=== PATIENT | male | born 1995 | race Caucasian/White ===

== ENCOUNTER 2019-06-28 02:19 | Emergency (ER) | payer SELFPAY ==
[2019-06-28] MEDS ORDERED: METRONIDAZOLE 500 MG TABLET PO ONE (05:24)
[2019-06-28] MEDS ORDERED: PENICILLIN V POTASSIUM 500 MG TABLET PO ONE (05:24)
[2019-06-28] MEDS ORDERED: OXYCODONE-ACETAMINOPHEN 5-325 MG TABLET PO ONE (05:24)
--- NOTE | 2019-06-28 05:30 | ER Document Report ---
ED Oral Problem - General Chief Complaint: Toothache Stated Complaint: TOOTHACHE Time Seen by Provider: 06/28/19 05:18 - HPI Notes: 24-year-old male presents complaining of right lower dental pain x1 day. Patient has an appointment to have a tooth extracted on 07/03/2019. Patient states over the past 24 hours he has noticed a lot of pain in the region of tooth #30 and is had associated facial swelling on the right side of his face. Patient denies fever, chills, trismus, shortness of breath. - Related Data Allergies/Adverse Reactions: No Known Allergies Allergy (Unverified 06/28/19 02:49) Home Medications: Metformin Past Medical History - General Information source: Patient - Social History Smoking Status: Never Smoker Frequency of alcohol use: None Drug Abuse: None Family History: Reviewed & Not Pertinent Patient has suicidal ideation: No Patient has homicidal ideation: No Review of Systems - Review of Systems Constitutional: No symptoms reported EENT: See HPI Cardiovascular: No symptoms reported Respiratory: No symptoms reported Gastrointestinal: No symptoms reported Genitourinary: No symptoms reported Male Genitourinary: No symptoms reported Musculoskeletal: No symptoms reported Skin: No symptoms reported Hematologic/Lymphatic: No symptoms reported Neurological/Psychological: No symptoms reported -: Yes All other systems reviewed and negative Physical Exam - Vital signs Vitals: Temp Pulse Resp BP Pulse Ox 98.1 F 87 20 143/79 H 96 06/28/19 02:32 06/28/19 02:32 06/28/19 02:32 06/28/19 02:32 06/28/19 02:32 - Notes Notes: PHYSICAL EXAMINATION: GENERAL: Well-appearing, well-nourished and in no acute distress. HEAD: Atraumatic, normocephalic. EYES: Pupils equal round and reactive to light, extraocular movements intact, sclera anicteric, conjunctiva are normal. ENT exam: Patient has a cavity present on the lateral base of tooth #30. There is no associated abscess seen. Patient has some right cheek swelling but there is no trismus and no submandibular swelling present. PSYCH: Normal mood, normal affect. SKIN: Warm, Dry, normal turgor, no rashes or lesions noted. Course - Re-evaluation Re-evalutation: 06/28/19 05:29 Emergency signs and symptoms, reasons to return to the emergency department discussed with the patient. - Vital Signs Vital signs: Temp Pulse Resp BP Pulse Ox 98.1 F 87 20 143/79 H 96 06/28/19 02:32 06/28/19 02:32 06/28/19 02:32 06/28/19 02:32 06/28/19 02:32 Discharge - Discharge Clinical Impression: Pain, dental Condition: Good Disposition: HOME, SELF-CARE Instructions: Oral Narcotic Medication ([facility]), Toothache ([facility]), Penicillin V K ([facility]) Additional Instructions: Return to the Emergency Department without delay if any worse. Follow-up with your dentist as scheduled on 07/03/2019. HOME CARE INSTRUCTIONS & INFORMATION: Thank you for choosing us for your medical needs. We hope you're satisfied with the care you received. After you leave, you must properly care for your problem and, at the same time, observe its progress. Any condition can change. Some illnesses can change rapidly over hours or days. If your condition worsens, return to the Emergency Department or see your physician promptly. ABOUT YOUR X-RAYS AND EKG'S: If you had an EKG or X-rays taken, they have been read by the Emergency Physician. The X-rays and EKG's will also be read by a Radiologist or Provider Service Representative within 24 hours. If discrepancies are noted, you will be notified by telephone. Please be certain the ED has a correct telephone number & address where you can be reached. Also, realize that some fractures or abnormalities do not show up on initial X-rays. If your symptoms continue, see your physician. ABOUT YOUR LABORATORY TEST: If you had laboratory tests, the results have been reviewed by the Emergency Physician. Some test results (for example cultures) may not be available for several days. You will be contacted if any test result shows you need additional treatment. Please be certain the ED has a correct telephone number and address where you can be reached. ABOUT YOUR MEDICATIONS: You will receive instructions on how to take your medicine on the prescription label you receive. Additional information may be provided by the Pharmacy. If you have questions afterwards, call the ED for clarification or further instructions. Some prescribed medications may cause drowsiness. Do not perform tasks such as driving a car or operating machinery without consulting your Pharmacist. If you feel you need a refill of pain medication, your condition will need re-evaluation. Please do not call for a refill of any medication. ABOUT YOUR SIGNATURE: Signature of this document acknowledges to followin. Understanding that you received emergency treatment and that you may be released before al medical problems are known or treated. Please be certain the ED has a correct phone number & address where you can be reached. 2. Acknowledgement that you will arrange for follow-up care as recommended. 3. Authorization for the Emergency Physician to provide information to your follow-up Physician in order to maximize your care. AT ANY TIME, IF YOUR SYMPTOMS CHANGE SIGNIFICANTLY OR WORSEN OR YOU DEVELOP NEW SYMPTOMS, RETURN TO THE EMERGENCY DEPARTMENT IMMEDIATELY FOR RE-EVALUATION. OUR GOAL IS TO PROVIDE EXCELLENT MEDICAL CARE! WE HOPE THAT WE HAVE MET YOUR EXPECTATIONS DURING YOUR EMERGENCY DEPARTMENT VISIT AND THAT YOU FEEL YOU HAVE RECEIVED EXCELLENT CARE! Prescriptions: Metronidazole [Flagyl 500 mg Tablet] 500 mg PO TID #30 tablet Penicillin V Potassium [Penicillin Vk 500 mg Tablet] 500 mg PO QID #40 tablet Oxycodone HCl/Acetaminophen [Percocet 5-325 mg Tablet] 1 tab PO Q6H PRN #20 tab PRN Reason: Severe Pain
[2019-06-28 06:11] VITALS: BP 147/73
== END 2019-06-28 05:55 | disposition home or self-care (01) ==
LOC: ER 02:19
DX: K02.9 Dental caries, unspecified (principal); R22.0 Localized swelling, mass and lump, head; K08.89 Other specified disorders of teeth and supporting structures; Z79.84 Long term (current) use of oral hypoglycemic drugs
CPT/HCPCS: 99282

== ENCOUNTER 2019-09-14 01:35 | Emergency (ER) | payer MEDICAID ==
[2019-09-14] MEDS ORDERED: DIAZEPAM 5 MG TABLET PO ONE (02:13)
[2019-09-14] MEDS ORDERED: OXYCODONE-ACETAMINOPHEN 5-325 MG TABLET PO ONE (02:13)
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
[2019-09-14] MEDS: KETOROLAC TROMETHAMINE 60 MG/2 ML SDV IM ONE ×2 (02:29→03:00)
--- NOTE | 2019-09-14 02:59 | RADIOLOGY REPORT (SQ) ---
EXAM DESCRIPTION: XR LUMBAR SPINE 3 VIEWS COMPLETED DATE/TME: 09/14/2019 00:00 CLINICAL HISTORY: 24 years Male, fall bone pain COMPARISON: None. Findings: Normal alignment. Mild levo convexity. Mild T11 anterior vertebral compression deformity. Extraspinal structures are grossly intact. IMPRESSION: Mild T11 anterior vertebral compression deformity.
[2019-09-14] MEDS ORDERED: DEXAMETHASONE 4 MG TABLET PO ONE (03:07)
--- NOTE | 2019-09-14 04:23 | RADIOLOGY REPORT (SQ) ---
EXAM DESCRIPTION: CT THORACIC SPINE WITHOUT IV CONTRAST COMPLETED DATE/TME: 09/14/2019 03:06 CLINICAL HISTORY: 24 years, Male, evaluate t11 fracture - image T9-12 pls COMPARISON: None. TECHNIQUE: Axial CT images of the thoracic spine were obtained without contrast. Sagittal and coronal reformats were performed. DL [id number] Images stored on PACS. All CT scanners at this facility use dose modulation, iterative reconstruction, and/or weight based dosing when appropriate to reduce radiation dose to as low as reasonably achievable (ALARA). [facility]: Dose Right [facility]: CareDose [facility]: Dose Right [facility]: Teradose 4D [facility]: [employer] LIMITATIONS: None. FINDINGS: The alignment of the thoracic spine is satisfactory. There is mild chronic anterior wedging of the T11 vertebral body. There is no cortical disruption, retropulsion or paraspinal hematoma. The paraspinal soft tissues are normal. The remainder of the vertebral heights are maintained. There is no significant spinal canal stenosis or neural foraminal narrowing at any level. Visualized portions of the lungs are clear. IMPRESSION: Mild chronic anterior wedging of the T11 vertebral body. No acute fracture or subluxation. TECHNICAL DOCUMENTATION: Quality ID # 436: Final reports with documentation of one or more dose reduction techniques (e.g., Automated exposure control, adjustment of the mA and/or kV according to patient size, use of iterative reconstruction technique) copyright 2011 [email or web address]- All Rights Reserved
[2019-09-14] MEDS ORDERED: HYDROCODONE/ACETAMINOPHEN 5-325 MG (6 TAB/ER DISP) PO PRN (05:16)
[2019-09-14 05:36] VITALS: BP 134/49
== END 2019-09-14 05:36 | disposition home or self-care (01) ==
LOC: ER 01:35
DX: S39.92XA Unspecified injury of lower back, initial encounter (principal); M54.41 Lumbago with sciatica, right side; W19.XXXA Unspecified fall, initial encounter; Y93.B9 Activity, other involving muscle strengthening exercises; Z88.2 Allergy status to sulfonamides
CPT/HCPCS: 99284; 96372; 72100; 72128; J3490 ×2; J1885; J8540

== ENCOUNTER 2019-09-17 04:25 | Emergency (ER) | payer MEDICAID ==
[2019-09-17] MEDS ORDERED: KETOROLAC TROMETHAMINE INJ/PF 30 MG/1 ML SDV ONE (05:56)
[2019-09-17] MEDS ORDERED: OXYCODONE-ACETAMINOPHEN 5-325 MG TABLET ONE (05:56)
--- NOTE | 2019-09-17 06:09 | ER Document Report ---
ED General - General Stated Complaint: back pain Time Seen by Provider: 09/17/19 06:08 Primary Care Provider: BRANDEE NUR III, MD [NO LOCAL MD] - Follow up as needed Notes: 24-year-old male with back pain. Right upper lumbar/lower thoracic radiating down the posterior right leg to the foot with mild tingling. No foot drop no weakness no bowel or bladder incontinence no injection drug use. Injured himself about a week ago jumping up off of a box at [employer]. Had a compression type injury at that time and was here had a CT cervical and thoracic spine set to have a T11 chronic wedge deformity. He actually saw a spine doctor who said "you are pretty messed up" and ordered an MRI within a week but did not give him any pain medication. He has a history of a traumatic right arm amputation but does not take narcotics and [facility] [place] He is try to get a primary care doctor to the best of his ability and is unable to do so. TRAVEL OUTSIDE OF THE [place] IN LAST 30 DAYS: No - Related Data Allergies/Adverse Reactions: Sulfa (Sulfonamide Antibiotics) Allergy (Verified 09/14/19 01:55) Past Medical History - Social History Smoking Status: Never Smoker Family History: Reviewed & Not Pertinent Review of Systems - Review of Systems Notes: REVIEW OF SYSTEMS GEN: Denies fever, chills, weight loss ENT: Denies sore throat, nasal discharge, ear pain EYES: Denies blurry vision, eye pain, discharge CV: Denies chest pain, palpitations, edema RESP: Denies cough, shortness of breath, wheezing GI: Denies abdominal pain, nausea, vomiting, diarrhea MSK: Back pain SKIN: Denies rash, skin lesions LYMPH: Denies swollen glands/lymph nodes NEURO: Paresthesia right foot no other neurologic deficits PSYCH: Denies depression, suicidal or homicidal ideation PHYSICAL EXAMINATION General: No acute distress, well-nourished Head: Atraumatic, normocephalic ENT: Mouth normal, oropharynx moist, no exudates or tonsillar enlargement Eyes: Conjunctiva normal, pupils equal, lids normal Neck: No JVD, supple, no guarding CVS: Normal rate, regular rhythm, no murmurs Resp: No resp distress, equal and normal breath sounds bilaterally GI: Nondistended, soft, no tenderness to palpation, no rebound or guarding Ext: Right upper arm amputation, nonedematous lower extremities Back: Mild right midline/paramedian upper lumbar tenderness Skin: No rash, warm Lymphatic: No lymphadeopathy noted Neuro: Awake, alert. Face symmetric. GCS 15. 5 plantar dorsiflexion right leg Physical Exam - Vital signs Vitals: Temp Pulse Resp BP Pulse Ox 97.5 F 73 15 134/75 H 99 09/17/19 08:00 09/17/19 08:00 09/17/19 08:00 09/17/19 08:00 09/17/19 08:00 Course - Re-evaluation Re-evalutation: 09/17/19 09:09 Reviewed imaging from past visit Back injury with right-sided lumbar radiculopathy without signs of cauda equina with minimal tenderness. Previous imaging was of the thoracic spine which showed a chronic T11 wedge I think this is probably not the cause of his pain We did do a CT L-spine todayno fractures. I can actually see some disc bulging at L4-L5/L5-S1 on the CT scan and the patient already has an MRI scheduled. We discussed management including lidocaine short course of narcotic, and a steroid taper A given the names of several primary care and spine doctors because he is unsatisfied with his current orthopedic care. He has insurance and will follow- up as an outpatient. I have discussed with the patient there likely diagnosis, aftercare plan, follow-up plans and my usual and customary return precautions. They verbalized understanding of this. - Vital Signs Vital signs: Temp Pulse Resp BP Pulse Ox 97.5 F 73 15 134/75 H 99 09/17/19 08:00 09/17/19 08:00 09/17/19 08:00 09/17/19 08:00 09/17/19 08:00 - Diagnostic Test Radiology reviewed: Image reviewed, Reports reviewed Discharge - Discharge Clinical Impression: Lumbar radiculopathy Thoracic compression fracture Qualifiers: Encounter type: subsequent encounter Thoracic vertebra fracture level: T11 Fracture healing: with routine healing Qualified Code(s): S22.080D - Wedge compression fracture of T11-T12 vertebra, subsequent encounter for fracture with routine healing Condition: Good Disposition: HOME, SELF-CARE Instructions: Low Back Pain ([facility]), Oral Narcotic Medication ([facility]), Radiculopathy ([facility]) Additional Instructions: Brandee Nur [facility] Prescriptions: Oxycodone HCl/Acetaminophen [Percocet 10-325 Mg Tablet] 1 each PO Q4HP PRN #17 tablet PRN Reason: Prednisone [Deltasone 20 mg Tablet] 40 mg PO DAILY #20 tablet Lidocaine [Lidoderm 5% (700 mg) Transdermal Patch] 1 patch TP DAILY #10 adh..patch Referrals: BRANDEE NUR III, MD [NO LOCAL MD] - Follow up as needed
--- NOTE | 2019-09-17 06:54 | RADIOLOGY REPORT (SQ) ---
EXAM DESCRIPTION: CT LUMBAR SPINE WITHOUT IV CONTRAST COMPLETED DATE/TME: 09/17/2019 00:00 CLINICAL HISTORY: 24 years, Male, RECENT FALL WITH T 11 DEFORMITY. NOW C/O RADICULOPATHY R LEG COMPARISON: Plain films 09/14/2019 TECHNIQUE: [id number] Images stored on PACS. All CT scanners at this facility use dose modulation, iterative reconstruction, and/or weight based dosing when appropriate to reduce radiation dose to as low as reasonably achievable (ALARA). [facility]: Dose Right [facility]: CareDose [facility]: Dose Right [facility]: Teradose 4D [facility]: [employer] LIMITATIONS: None. FINDINGS: 5 lumbar type vertebral bodies, for the purposes of this exam. Mild levoconvex scoliosis. Transitional L5 segment with pseudoarticulation of the right L5 transverse process and the sacrum. Similar to the prior plain film there is mild anterior wedge deformity of T11. No retropulsed fracture fragment. Evaluation of spinal canal contents limited due to CT technique. However, vertebral body height and alignment is otherwise preserved. Extraspinal anatomic structures are unremarkable. Pars defects at the L5-S1 level without spondylolisthesis. No CT evidence for central canal stenosis at any level.. IMPRESSION: Stable mild anterior T11 wedge deformity. No retropulsed fracture fragment. Mild levoconvex scoliosis. Transitional L5 segment as above. Pars defects at L5-S1 without spondylolisthesis. TECHNICAL DOCUMENTATION: Quality ID # 436: Final reports with documentation of one or more dose reduction techniques (e.g., Automated exposure control, adjustment of the mA and/or kV according to patient size, use of iterative reconstruction technique) copyright 2011 [employer]- All Rights Reserved
[2019-09-17 08:01] VITALS: BP 134/75
== END 2019-09-17 08:01 | disposition home or self-care (01) ==
LOC: ER 04:25
DX: S22.080D Wedge compression fracture of T11-T12 vertebra, subsequent encounter for fracture with routine healing (principal); M54.16 Radiculopathy, lumbar region; R20.0 Anesthesia of skin; M54.9 Dorsalgia, unspecified; X58.XXXD Exposure to other specified factors, subsequent encounter; Y93.39 Activity, other involving climbing, rappelling and jumping off; Y92.89 Other specified places as the place of occurrence of the external cause; Z88.2 Allergy status to sulfonamides; Z89.201 Acquired absence of right upper limb, unspecified level
CPT/HCPCS: 72131

== ENCOUNTER 2019-10-19 11:51 | Emergency (ER) | payer MEDICAID ==
--- NOTE | 2019-10-19 12:14 | ER Document Report ---
ED Medical Screen (RME) - General Chief Complaint: Back Pain Stated Complaint: BACK PAIN Time Seen by Provider: 10/19/19 12:04 Mode of Arrival: Ambulatory Information source: Patient TRAVEL OUTSIDE OF THE [place] IN LAST 30 DAYS: No - HPI Onset: Other Notes: 10/19/19 12:13 This 24-year-old male who allegedly fractured T11 approximately a month ago has some radiculopathy he had stayed home on bedrest for 2 weeks was doing much better last night went to the gym for the first time since the fracture 1 month ago did a light workout with some yoga today has excruciating pain mid back radiation down lower extremities with some bladder incontinence - Related Data Allergies/Adverse Reactions: Sulfa (Sulfonamide Antibiotics) Allergy (Verified 09/14/19 01:55) Physical Exam - Vital signs Vitals: Temp Pulse Resp BP Pulse Ox 98.0 F 93 20 119/72 95 10/19/19 11:59 10/19/19 11:59 10/19/19 11:59 10/19/19 11:59 10/19/19 11:59 Course - Vital Signs Vital signs: Temp Pulse Resp BP Pulse Ox 98.0 F 93 20 119/72 95 10/19/19 11:59 10/19/19 11:59 10/19/19 11:59 10/19/19 11:59 10/19/19 11:59
[2019-10-19] MEDS ORDERED: ONDANSETRON HCL INJ/PF 4 MG/2 ML SDV IV ONE (13:04)
[2019-10-19] MEDS ORDERED: NORMAL SALINE 1000 ML 1,000 ML IV ONE (13:04)
[2019-10-19] MEDS ORDERED: HYDROMORPHONE HCL INJ/PF 2 MG/ML AMPULE IV ONE (13:04)
[2019-10-19] MEDS ORDERED: HYDROMORPHONE HCL INJ/PF 2 MG/ML AMPULE IM ONE (13:42)
[2019-10-19] MEDS ORDERED: ONDANSETRON HCL INJ/PF 4 MG/2 ML SDV IM ONE (13:42)
[2019-10-19 13:56] LABS: APPEARANCE,URINE CLEAR; BILIRUBIN,URINE NEGATIVE (NEGATIVE); COLOR,URINE YELLOW; GLUCOSE, URINE NEGATIVE (NEGATIVE); KETONES,URINE NEGATIVE (NEGATIVE); LEUKOCYTE ESTERASE,URINE NEGATIVE (NEGATIVE); NITRITE,URINE NEGATIVE (NEGATIVE); PROTEIN,URINE NEGATIVE (NEGATIVE); URINE SPECIFIC GRAVITY 1.013; UROBILINOGEN,URINE NEGATIVE mg/dL (<2.0)
[2019-10-19 14:59] LABS: ABSOLUTE BASOPHILS # (AUTO) 0.1 10^3/uL (0.0-0.2); ABSOLUTE EOSINOPHILS # (AUTO) 0.1 10^3/uL (0.0-0.6); ABSOLUTE LYMPHOCYTES (AUTO) 2.3 10^3/uL (0.5-4.7); ABSOLUTE MONOCYTES (AUTO) 0.7 10^3/uL (0.1-1.4); BASOPHILS % (AUTO) 0.9 % (0-2); EOSINOPHILS % (AUTO) 1.2 % (0-6); HEMATOCRIT 45.6 % (37.9-51.0); HEMOGLOBIN 15.9 g/dL (13.5-17.0); LYMPHOCYTES % (AUTO) 25.1 % (13-45); MEAN CORPUSCULAR HGB CONC 34.7 g/dL (32.0-36.0); MEAN CORPUSCULAR VOLUME 78 fl (80-97); MONOCYTES % (AUTO) 7.5 % (3-13); PLATELET COUNT 190 10^3/uL (150-450); RED BLOOD COUNT 5.86 10^6/uL (4.35-5.55); RED CELL DISTRIBUTION WIDTH 13.5 % (11.5-14.0); SEGMENTED NEUTROPHILS % (AUTO) 65.3 % (42-78); TOTAL CELLS COUNTED % (AUTO) 100 %; WHITE BLOOD COUNT 9.1 10^3/uL (4.0-10.5)
--- NOTE | 2019-10-19 15:18 | RADIOLOGY REPORT (SQ) ---
EXAM DESCRIPTION: CT LUMBAR SPINE WITHOUT COMPLETED DATE/TIME: 10/19/2019 3:02 pm REASON FOR STUDY: low back pain COMPARISON: None. TECHNIQUE: Axial images acquired through the lumbar spine without intravenous contrast. Images revi ewed with lung, soft tissue and bone windows. Reconstructed coronal and sagittal MPR images reviewed . All images stored on PACS. All CT scanners at this facility use dose modulation, iterative reconstruction, and/or weight based d osing when appropriate to reduce radiation dose to as low as reasonably achievable (ALARA). [facility]: Dose Right [facility]: CareDose [facility]: Dose Right [facility]: Teradose 4D [facility]: [employer] RADIATION DOSE: mGy. LIMITATIONS: None. FINDINGS: SEGMENTATION: Partial L5 transitional anatomy. ALIGNMENT: Normal. VERTEBRAL BODIES: No fractures. No dislocation. No acute findings. DISCS: Probable 4-5 mm central disc protrusion at the L4-5 level. Study limited by lack of intrathec al contrast. PEDICLES, TRANSVERSE PROCESSES: No fractures. No dislocation. No acute findings. FACETS, POSTERIOR ELEMENTS: No fractures. No dislocation. No spinal stenosis. HARDWARE: None in the spine. VISUALIZED RIBS: No fractures. SOFT TISSUES: No significant or acute finding in adjacent soft tissues. OTHER: No other significant finding. IMPRESSION: Probable 4-5 mm central disc protrusion at the L4-5 level. No fracture. TECHNICAL DOCUMENTATION: JOB ID: [id number] [place]-72 Quality ID # [id number]: Final reports with documentation of one or more dose reduction techniques (e.g., Au tomated exposure control, adjustment of the mA and/or kV according to patient size, use of iterative reconstruction technique) 2010 [employer]- All Rights Reserved Reading location - IP/workstation name: [employer]
[2019-10-19 15:22] LABS: ALBUMIN 4.1 g/dL (3.5-5.0); ALKALINE PHOSPHATASE 78 U/L (38-126); ANION GAP 10 (5-19); ASPARTATE AMINO TRANSFERASE 54 U/L (17-59); BILIRUBIN,DIRECT 0.2 mg/dL (0.0-0.4); BILIRUBIN,TOTAL 0.6 mg/dL (0.2-1.3); BLOOD UREA NITROGEN 12 mg/dL (7-20); CARBON DIOXIDE 24 mmol/L (22-30); CHLORIDE 103 mmol/L (98-107); GLUCOSE 146 mg/dL (75-110); POTASSIUM 4.4 mmol/L (3.6-5.0); TOTAL PROTEIN 7.3 g/dL (6.3-8.2)
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
[2019-10-19 15:55] VITALS: BP 136/66
== END 2019-10-19 16:11 | disposition home or self-care (01) ==
LOC: ER 11:51
DX: M51.26 Other intervertebral disc displacement, lumbar region (principal); Z88.2 Allergy status to sulfonamides
CPT/HCPCS: 99284; 96372; 96374; 36415; 85025; 80053; 81001; 72131; J1170; J2405

== ENCOUNTER 2019-11-22 00:25 | Emergency (ER) | payer MEDICAID ==
[2019-11-22] MEDS ORDERED: HYDROMORPHONE HCL INJ/PF 2 MG/ML AMPULE IV ONE ×4 (03:30→11:14)
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
[2019-11-22 03:44] LABS: ABSOLUTE BASOPHILS # (AUTO) 0.1 10^3/uL (0.0-0.2); ABSOLUTE EOSINOPHILS # (AUTO) 0.2 10^3/uL (0.0-0.6); ABSOLUTE LYMPHOCYTES (AUTO) 3.4 10^3/uL (0.5-4.7); ABSOLUTE NEUT (AUTO) 9.8 10^3/uL (1.7-8.2); BASOPHILS % (AUTO) 0.6 % (0-2); EOSINOPHILS % (AUTO) 1.3 % (0-6); HEMATOCRIT 46.6 % (37.9-51.0); LYMPHOCYTES % (AUTO) 23.6 % (13-45); MEAN CORPUSCULAR HEMOGLOBIN 27.1 pg (27.0-33.4); MEAN CORPUSCULAR HGB CONC 34.4 g/dL (32.0-36.0); MEAN CORPUSCULAR VOLUME 79 fl (80-97); MONOCYTES % (AUTO) 6.7 % (3-13); PLATELET COUNT 213 10^3/uL (150-450); RED BLOOD COUNT 5.91 10^6/uL (4.35-5.55); RED CELL DISTRIBUTION WIDTH 13.7 % (11.5-14.0); SEGMENTED NEUTROPHILS % (AUTO) 67.8 % (42-78); TOTAL CELLS COUNTED % (AUTO) 100 %; WHITE BLOOD COUNT 14.5 10^3/uL (4.0-10.5)
[2019-11-22 04:08] LABS: ALBUMIN 4.5 g/dL (3.5-5.0); ALKALINE PHOSPHATASE 104 U/L (38-126); ANION GAP 10 (5-19); ASPARTATE AMINO TRANSFERASE 59 U/L (17-59); BILIRUBIN,TOTAL 0.4 mg/dL (0.2-1.3); BLOOD UREA NITROGEN 14 mg/dL (7-20); CALCIUM 9.9 mg/dL (8.4-10.2); CARBON DIOXIDE 25 mmol/L (22-30); CHLORIDE 103 mmol/L (98-107); GLUCOSE 142 mg/dL (75-110); POTASSIUM 4.2 mmol/L (3.6-5.0); TOTAL PROTEIN 7.7 g/dL (6.3-8.2)
[2019-11-22 04:22] LABS: ERYTHROCYTE SEDIMENTATION RATE 16 mm/hr (0-15)
[2019-11-22 04:28] LABS: APPEARANCE,URINE CLEAR; BILIRUBIN,URINE NEGATIVE (NEGATIVE); COLOR,URINE YELLOW; GLUCOSE, URINE NEGATIVE (NEGATIVE); KETONES,URINE NEGATIVE (NEGATIVE); LEUKOCYTE ESTERASE,URINE NEGATIVE (NEGATIVE); NITRITE,URINE NEGATIVE (NEGATIVE); PROTEIN,URINE NEGATIVE (NEGATIVE); URINE SPECIFIC GRAVITY 1.013; UROBILINOGEN,URINE NEGATIVE mg/dL (<2.0)
[2019-11-22] MEDS ORDERED: IBUPROFEN 800 MG TABLET PO ONE (09:15)
[2019-11-22] MEDS ORDERED: LORAZEPAM INJ 2 MG/1 ML VIAL IV ONE (11:13)
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
--- NOTE | 2019-11-22 13:00 | RADIOLOGY REPORT (SQ) ---
EXAM DESCRIPTION: MRI THORACIC SPINE COMBO IMAGES COMPLETED DATE/TIME: 11/22/2019 12:45 pm REASON FOR STUDY: concern cauda equina COMPARISON: None. TECHNIQUE: Sagittal and Axial imaging includes T1, T2, STIR and gradient echo sequences. T1 post ga dolinium sequences. CONTRAST TYPE AND DOSE: 20 mL Dotarem. RENAL FUNCTION: Not indicated. ACR Type II contrast agent associated with few, if any, unconfounded cases of NSF LIMITATIONS: None. FINDINGS: LOCALIZER: No worrisome findings. ALIGNMENT: Normal. VERTEBRAE: Intact. BONE MARROW: Normal. No marrow replacement or reactive changes. HARDWARE: None in the spine. CORD: Normal in size and signal intensity. SOFT TISSUES: No soft tissue masses. THORACIC DISCS T1-T12: No significant spinal stenosis or exit foraminal stenosis. LOWER CERVICAL: Incompletely imaged. No significant spinal stenosis or exit foraminal stenosis. UPPER LUMBAR: See separate report. ENHANCEMENT: No abnormal enhancement. OTHER: No other significant finding. IMPRESSION: NORMAL MRI THORACIC SPINE. TECHNICAL DOCUMENTATION: JOB ID: [id number] 2010 [employer]- All Rights Reserved Reading location - IP/workstation name: [email or web address]
--- NOTE | 2019-11-22 13:05 | RADIOLOGY REPORT (SQ) ---
EXAM DESCRIPTION: MRI LUMBAR SPINE COMBO IMAGES COMPLETED DATE/TIME: 11/22/2019 12:45 pm REASON FOR STUDY: concern cauda equina COMPARISON: None. TECHNIQUE: Sagittal and Axial imaging includes T1, T1 post gadolinium, T2, STIR and gradient echo se quences. Coronal T2/HASTE imaging. CONTRAST TYPE AND DOSE: 120 mL Dotarem. RENAL FUNCTION: Not indicated. ACR Type II contrast agent associated with few, if any, unconfounded cases of NSF LIMITATIONS: Artifact from body habitus. FINDINGS: VISUALIZED UPPER ABDOMEN: Limited evaluation. No acute or suspicious findings suggested. SEGMENTATION: No transitional anatomy. The lowest well-developed disc space is labeled L5-S1. ALIGNMENT: Anatomic. VERTEBRAE: Intact. No fractures. BONE MARROW: Normal. No marrow replacement or reactive changes. DISC SIGNAL: Desiccation L4-5. POSTERIOR ELEMENTS: Generally intact. No pars defect evident. HARDWARE: None in the spine. CORD AND CONUS: Normal in size and signal intensity. Conus at the appropriate level. SOFT TISSUES: No aortic aneurysm seen. No bulky retroperitoneal adenopathy or mass. No paraspinal mas s or fluid. L1-L2: No significant spinal stenosis or exit foraminal stenosis. L2-L3: No significant spinal stenosis or exit foraminal stenosis. L3-L4: No significant spinal stenosis or exit foraminal stenosis. L4-L5: Central annular fissure. No significant stenosis. L5-S1: No significant spinal stenosis or exit foraminal stenosis. LOWER THORACIC: See separate report. SACRUM: Visualized upper sacrum intact. ENHANCEMENT: No abnormal enhancement. OTHER: No other significant findings. IMPRESSION: Annular fissure L4- 5. No acute findings. TECHNICAL DOCUMENTATION: JOB ID: [id number] [employer]- All Rights Reserved Reading location - IP/workstation name: [email or web address]
[2019-11-22 14:00] VITALS: BP 145/52
== END 2019-11-22 13:59 | disposition home or self-care (01) ==
LOC: ER 00:25
DX: G89.29 Other chronic pain (principal); M54.5 Low back pain; M54.16 Radiculopathy, lumbar region; E11.9 Type 2 diabetes mellitus without complications; Z88.2 Allergy status to sulfonamides; Z79.84 Long term (current) use of oral hypoglycemic drugs; Z89.201 Acquired absence of right upper limb, unspecified level
CPT/HCPCS: 96376; 99284; 96374; 96375; 36415; 85025; 85652; 80053; 81001; 72157; 72158; 70250; A9576; J3490; J1170; J2060

== ENCOUNTER 2020-01-24 16:38 | Emergency (ER) | payer MEDICAID ==
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
[2020-01-24] MEDS ORDERED: KETOROLAC TROMETHAMINE INJ/PF 30 MG/1 ML SDV IM ONE (18:24)
[2020-01-24 19:23] LABS: ABSOLUTE BASOPHILS # (AUTO) 0.1 10^3/uL (0.0-0.2); ABSOLUTE EOSINOPHILS # (AUTO) 0.2 10^3/uL (0.0-0.6); ABSOLUTE LYMPHOCYTES (AUTO) 2.3 10^3/uL (0.5-4.7); ABSOLUTE MONOCYTES (AUTO) 0.6 10^3/uL (0.1-1.4); BASOPHILS % (AUTO) 0.8 % (0-2); EOSINOPHILS % (AUTO) 1.9 % (0-6); HEMATOCRIT 48.3 % (37.9-51.0); HEMOGLOBIN 16.5 g/dL (13.5-17.0); LYMPHOCYTES % (AUTO) 28.4 % (13-45); MEAN CORPUSCULAR HEMOGLOBIN 27.1 pg (27.0-33.4); MEAN CORPUSCULAR HGB CONC 34.2 g/dL (32.0-36.0); MEAN CORPUSCULAR VOLUME 79 fl (80-97); MONOCYTES % (AUTO) 7.8 % (3-13); PLATELET COUNT 223 10^3/uL (150-450); RED BLOOD COUNT 6.09 10^6/uL (4.35-5.55); RED CELL DISTRIBUTION WIDTH 12.5 % (11.5-14.0); SEGMENTED NEUTROPHILS % (AUTO) 61.1 % (42-78); TOTAL CELLS COUNTED % (AUTO) 100 %; WHITE BLOOD COUNT 8.1 10^3/uL (4.0-10.5)
[2020-01-24 19:42] LABS: ALBUMIN 4.5 g/dL (3.5-5.0); ALKALINE PHOSPHATASE 100 U/L (38-126); ANION GAP 9 (5-19); ASPARTATE AMINO TRANSFERASE 84 U/L (17-59); BILIRUBIN,DIRECT 0.1 mg/dL (0.0-0.4); BILIRUBIN,TOTAL 0.6 mg/dL (0.2-1.3); BLOOD UREA NITROGEN 15 mg/dL (7-20); CALCIUM 9.8 mg/dL (8.4-10.2); CARBON DIOXIDE 27 mmol/L (22-30); CHLORIDE 99 mmol/L (98-107); GLUCOSE 328 mg/dL (75-110); POTASSIUM 4.5 mmol/L (3.6-5.0); TOTAL PROTEIN 7.8 g/dL (6.3-8.2)
--- NOTE | 2020-01-24 20:13 | RADIOLOGY REPORT (SQ) ---
EXAM DESCRIPTION: MRI LUMBAR SPINE WITHOUT IMAGES COMPLETED DATE/TIME: 01/24/2020 6:43 pm REASON FOR STUDY: low back pain with saddle anesthesia. Patient refused IV contrast. Pain radiates downward to the legs. Chronic pain with new injury yesterday. Hypertension and diabetes. COMPARISON: Lumbar spine, 11/22/2019. TECHNIQUE: Sagittal and Axial imaging includes T1, T2, STIR and gradient echo sequences. Coronal T2/ HASTE imaging. LIMITATIONS: None. FINDINGS: VISUALIZED UPPER ABDOMEN: Limited evaluation. No acute or suspicious findings suggested. SEGMENTATION: Partial L5 transitional anatomy with sacralization of the low right L5 transverse proce ss. The lowest well-developed disc space is labeled L5-S1. ALIGNMENT: Anatomic. VERTEBRAE: Intact. BONE MARROW: Normal. No marrow replacement or reactive changes. DISC SIGNAL: Disc desiccation at L4-L5 unchanged from prior. POSTERIOR ELEMENTS: Generally intact. No pars defect evident. HARDWARE: None in the spine. CORD AND CONUS: Normal in size and signal intensity. Conus at the appropriate level. SOFT TISSUES: No aortic aneurysm seen. No bulky retroperitoneal adenopathy or mass. No paraspinal mas s or fluid. L1-L2: No significant spinal stenosis or exit foraminal stenosis. L2-L3: No significant spinal stenosis or exit foraminal stenosis. L3-L4: No significant spinal stenosis or exit foraminal stenosis. L4-L5: Central annular fissure. No significant disc bulge or encroachment on the spinal canal. L5-S1: No significant spinal stenosis or exit foraminal stenosis. LOWER THORACIC: Incompletely imaged. No stenosis seen. SACRUM: Visualized upper sacrum intact. OTHER: No other significant findings. IMPRESSION: Disc desiccation and annular fissure at L4-L5 unchanged in appearance from previous exam ination. No spinal canal stenosis or nerve root compression. TECHNICAL DOCUMENTATION: JOB ID: [id number] 2010 [employer]- All Rights Reserved Reading location - IP/workstation name: [email or web address]
[2020-01-25] MEDS ORDERED: INSULIN REG, HUMAN 100 UNIT/ML 3 ML VIAL (PYX) SUBCUT ONE (00:43)
[2020-01-25] MEDS ORDERED: HYDROCODONE/ACETAMINOPHEN 5-325 MG (6 TAB/ER DISP) PO PRN (00:44)
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
[2020-01-25 01:13] VITALS: BP 114/80
== END 2020-01-25 01:12 | disposition home or self-care (01) ==
LOC: ER 16:38
DX: G89.29 Other chronic pain (principal); M54.5 Low back pain; M79.10 Myalgia, unspecified site; R20.2 Paresthesia of skin; E11.9 Type 2 diabetes mellitus without complications; Z88.2 Allergy status to sulfonamides
CPT/HCPCS: 99284; 96372; 36415; 82962; 85025; 80053; 72148; J1885; J1815